=== PATIENT | female | born 1960 | race Caucasian/White ===

== ENCOUNTER 2024-06-07 12:05 | Emergency (ER) | payer MEDICARE, OTHER, SELFPAY ==
[2024-06-07 12:07] VITALS: BP 176/92; PULSE 81; RESP 17; TEMP 36.7; O2SAT 99; BMI 30.7
[2024-06-07 15:03] VITALS: BP 158/113; PULSE 82; O2SAT 100
--- NOTE | 2024-06-07 15:09 | CTR_ITS ---
PROCEDURE INFORMATION: Exam: CT Lumbar Spine Without Contrast Exam date and time: 06/07/2024 3:24 PM Age: 64 years old Clinical indication: Low back pain; Additional info: Persistent back pain TECHNIQUE: Imaging protocol: Computed tomography of the lumbar spine without contrast. Radiation optimization: All CT scans at this facility use at least one of these dose optimization techniques: automated exposure control; mA and/or kV adjustment per patient size (includes targeted exams where dose is matched to clinical indication); or iterative reconstruction. COMPARISON: No relevant prior studies available. RADIATION DOSE METRICS: Total DLP (mGy-cm): 856 FINDINGS: Bones/joints: L2 vertebral body superior endplate minimal compression deformity without retropulsion of bony fragments, age indeterminate. L1-L2: No significant disc bulge or herniation. No severe spinal canal stenosis. No significant neural foraminal narrowing. L2-L3: No significant disc bulge or herniation. No severe spinal canal stenosis. No significant neural foraminal narrowing. L3-L4: L3-L4 broad-based disc bulge with mild bilateral foraminal narrowing and mild spinal canal narrowing. L4-L5: L4-L5 broad-based disc bulge and productive degenerative endplate changes mild spinal canal and bilateral foraminal narrowing. L5-S1: No significant disc bulge or herniation. No severe spinal canal stenosis. No significant neural foraminal narrowing. Kidneys and ureters: Right kidney cysts partially visualized. Perinephric edema bilaterally likely reflecting renal insufficiency, please correlate for pyelonephritis. Soft tissues: Unremarkable. CT/CT lumbar spine wo con* [id number] IMPRESSION: 1. Right kidney cysts partially visualized. 2. Perinephric edema bilaterally likely reflecting renal insufficiency, please correlate for pyelonephritis. 3. L2 vertebral body superior endplate minimal compression deformity without retropulsion of bony fragments, age indeterminate. 4. L3-L4 broad-based disc bulge with mild bilateral foraminal narrowing and mild spinal canal narrowing. 5. L4-L5 broad-based disc bulge and productive degenerative endplate changes mild spinal canal and bilateral foraminal narrowing. COMMENTS: Consistent with the [employer]'s Incidental Findings Committee white paper (J Am Aron Radiol 2018): Any incidental renal lesion less than 1 cm or classified as too small to characterize, or any incidental cystic renal lesion characterized as simple-appearing, is likely benign. No follow-up imaging is recommended for these lesions per consensus recommendations based on imaging criteria.
--- NOTE | 2024-06-07 15:09 | W.ED.EXTPRO ---
HPI - Extremity Problem General: Chief complaint: Extremity Problem,Nontraumatic Stated complaint: left side back/leg pain Time Seen by Provider: 06/07/24 15:00 History of Present Illness: 64-year-old female comes in today with complaints of lumbar pain radiating down her left hip to thigh. Patient reports pain for the last 2 months worsening over the last 3 days. Patient had talked to her primary care and they recommended she come to the ER. Patient reports had had her in physical therapy with minimal relief. Patient at this time is taking methocarbamol with minimal relief of pain. Patient appears nontoxic. Patient denies any loss of bowel or bladder control. Related Data Home Medications ?Medication ?Instructions ?Recorded ?Confirmed albuterol sulfate 0.63 mg/3 mL 0.63 mg inhalation QID PRN 05/13/19 06/07/24 solution for nebulization Shortness Of Breath ascorbic acid (vitamin C) 500 mg 500 mg PO DAILY 05/13/19 06/07/24 tablet biotin 2,500 mcg capsule 5 mg PO DAILY 05/13/19 06/07/24 budesonide 3 mg 3 mg PO DAILY 05/13/19 06/07/24 capsule,delayed,extended release calcium 600 mg (as carbonate)-vit 1 tab PO BID 05/13/19 06/07/24 D3 10 mcg (400 unit)-minerals tablet clopidogrel 75 mg tablet (Plavix) 75 mg PO DAILY 05/13/19 06/07/24 lactobacillus combination no.8 1 tab PO DAILY 05/13/19 06/07/24 [Adult Probiotic] melatonin 3 mg capsule 3 mg PO DAILY PRN Sleep 05/13/19 06/07/24 metoprolol tartrate 25 mg tablet 12.5 mg PO BID 05/13/19 06/07/24 multivitamin 1 tab PO DAILY 05/13/19 06/07/24 nitroglycerin 0.4 mg sublingual 0.4 mg sublingual Q5M PRN Chest 05/13/19 06/07/24 tablet (Nitrostat) Pain ondansetron HCl 8 mg tablet 8 mg PO Q8H PRN Nausea 05/13/19 06/07/24 pantoprazole 40 mg tablet,delayed 40 mg PO BID 05/13/19 06/07/24 release simvastatin 40 mg tablet 40 mg PO DAILY 05/13/19 06/07/24 tamsulosin 0.4 mg capsule 0.4 mg PO DAILY 05/13/19 06/07/24 trazodone 100 mg tablet 100 mg PO BEDTIME 05/13/19 06/07/24 zolpidem 12.5 mg tablet,extended 12.5 mg PO QPM 05/13/19 06/07/24 release,multiphase (Ambien CR) budesonide 160 mcg-glycopyr 9 2 inh inhalation BID 06/07/24 06/07/24 mcg-formot 4.8 mcg/actuation HFA inhaler (Breztri Aerosphere) coenzyme Q10 30 mg capsule 30 mg PO DAILY 06/07/24 06/07/24 denosumab 60 mg/mL subcutaneous 60 mg SUBCUT .[id number] 06/07/24 06/07/24 syringe (Prolia) levocetirizine 5 mg tablet 5 mg PO DAILY 06/07/24 06/07/24 omega-3 fatty acids-fish oil 684 1 cap PO DAILY 06/07/24 06/07/24 mg-1,200 mg capsule,delayed release tizanidine 4 mg tablet 40 mg PO Q8H PRN Muscle Spasm 06/07/24 06/07/24 Previous Rx's ?Medication ?Instructions ?Recorded hydrocodone 5 mg-acetaminophen 325 1 tab PO Q6H PRN pain #12 tabs 06/07/24 mg tablet prednisone 20 mg tablet 20 mg PO BID 5 days #10 tabs 06/07/24 Allergies Allergy/AdvReac Type Severity Reaction Status Date / Time aspirin Allergy Unknown unknown Verified 05/13/19 09:59 diphenhydramine (From Allergy Unknown Unknown Verified 05/13/19 10:04 Benadryl) gabapentin Allergy Unknown unknown Verified 05/13/19 09:58 metformin Allergy Unknown unknown Verified 05/13/19 09:59 NSAIDS (Non-Steroidal Allergy Unknown unknown Verified 05/13/19 10:04 Anti-Inflamma pregabalin (From Lyrica) Allergy Unknown vomiting Verified 05/13/19 10:04 sucralfate (From Carafate) Allergy Unknown unknown Verified 05/13/19 10:04 sulfamethoxazole (From Allergy Unknown vomiting Verified 05/13/19 10:04 Bactrim) and nausea trimethoprim (From Bactrim) Allergy Unknown vomiting Verified 05/13/19 10:04 and nausea zonisamide (From Zonegran) Allergy Unknown abdominal Verified 05/13/19 10:04 pain Review of Systems General: Reports: 10 or more systems reviewed and unremarkable except in HPI and below PFSH ED PFSH: Medical History (Updated 06/07/24 @ 16:28 by ROBERT Purcell) Ventricular arrhythmia Substernal precordial chest pain Pt had a total of three cardiac catheterizations in the past and was told to have no significant no blockages. Asthma Sleep apnea Neurogenic bladder Spondylosis Chronic migraine Hypertension Hyperlipidemia Manic bipolar I disorder Surgical History H/O: hysterectomy H/O section History of ankle surgery Family History Other CAD (coronary artery disease) Cancer Diabetes Hyperlipidemia Hypertension Stroke Social History (Updated 05/27/19 @ 15:40 by FREDY Mcpherson) Smoking and tobacco/nicotine status: current every day tobacco/nicotine user Alcohol intake: never Substance/Drug Use: never Adopted: No Caregiver/support person: No Marital status: Current occupational status: disabled Physical Exam Const: COMMON NORMALS: alert HENMT: COMMON NORMALS: normocephalic HEAD & SCALP: normocephalic Neck/C-Spine: COMMON NORMALS: full ROM Resp: COMMON NORMALS: normal respiratory effort and clear to auscultation bilaterally AUSCULTATION: clear to auscultation bilaterally GI: COMMON NORMALS: Soft to palpation and non-tender PALPATION: Yes Soft to palpation Back/Pelvis: LUMBAR SPINE/LOWER BACK: Yes paraspinal muscle tenderness Lumbar paraspinal muscle tenderness: left SACROILIAC JOINTS: Yes SI joint(s) abnormal SI joint details: tender to palpation Extremity: NARRATIVE EXTREMITY EXAM: Left leg positive lift test at 45 degrees. Neuro: SENSORIUM/ORIENTATION: Yes alert Skin: COMMON NORMALS: turgor normal GENERAL SKIN EXAM: turgor normal Course Vital Signs: Vital signs: Vital Signs Temperature 98.0 F 06/07/24 12:07 Pulse Rate 82 06/07/24 15:03 Respiratory Rate 17 06/07/24 12:07 Blood Pressure 158/113 06/07/24 15:03 Pulse Oximetry 100 06/07/24 15:03 Oxygen Delivery Me thod Room Air 06/07/24 15:03 MDM - Extremity (Nontraumatic) Medical Decision Making 64-year-old female comes in today with increased back pain radiating down her left leg. Patient appears nontoxic. Patient appears in moderate to severe pain. Patient has palpable muscle tenderness of the left lower lumbar area. Patient has tenderness in the left sacroiliac joint. Patient has a leg lift test at 45 degrees positive. Abdomen soft nontender. Skin is warm and dry. Differential diagnosis includes but not limited to intervertebral disc disease, facet arthritis, lumbar radiculopathy. Patient was given 10 mg dexamethasone for inflammation. Patient was offered a dose of hydromorphone but refused it stating it did not help her pain and reported that morphine also did not help her pain. Patient was then given 5 mg of Haldol to help with her her pain. Lab Data Radiology Impressions Lumbar Spine CT 06/07/24 15:09 IMPRESSION: 1. Right kidney cysts partially visualized. 2. Perinephric edema bilaterally likely reflecting renal insufficiency, please correlate for pyelonephritis. 3. L2 vertebral body superior endplate minimal compression deformity without retropulsion of bony fragments, age indeterminate. 4. L3-L4 broad-based disc bulge with mild bilateral foraminal narrowing and mild spinal canal narrowing. 5. L4-L5 broad-based disc bulge and productive degenerative endplate changes mild spinal canal and bilateral foraminal narrowing. COMMENTS: Consistent with the [employer]'s Incidental Findings Committee white paper (J Am Aron Radiol 2018): Any incidental renal lesion less than 1 cm or classified as too small to characterize, or any incidental cystic renal lesion characterized as simple-appearing, is likely benign. No follow-up imaging is recommended for these lesions per consensus recommendations based on imaging criteria. Laboratory Results Urine Color Yellow (Yellow) 06/07/24 16:00 Urine Appearance Clear (CLEAR) 06/07/24 16:00 Urine pH 6.0 (5-7) 06/07/24 16:00 Ur Specific [place] 1.007 (1.005-1.030) 06/07/24 16:00 Urine Protein Negative (Negative) 06/07/24 16:00 Urine Glucose (UA) Negative (Normal) 06/07/24 16:00 Urine Ketones Negative (Negative) 06/07/24 16:00 Urine Blood Negative (Negative) 06/07/24 16:00 Urine Nitrate Negative (Negative) 06/07/24 16:00 Urine Bilirubin Negative (Negative) 06/07/24 16:00 Urine Urobilinogen 0.2 mg/dL (Negative) 06/07/24 16:00 Ur Leukocyte Esterase Trace (Negative) A 06/07/24 16:00 Urine RBC 0-2 /hpf (0-2) 06/07/24 16:00 Urine WBC 0-5 /hpf (0-5) 06/07/24 16:00 Ur Squamous Epith Cells 0-5 /hpf (0-5) 06/07/24 16:00 Amorphous Sediment Not Reportable 06/07/24 16:00 Urine Bacteria None seen /hpf (NONE) 06/07/24 16:00 Hyaline Casts 0-4 /lpf H 06/07/24 16:00 All radiology interpretation(s) finalized by discharge Discharge Plan Discharge Patient Disposition: Home Clinical Impression: Left lumbar radiculopathy Condition: Stable Prescriptions: New prednisone 20 mg tablet 20 mg PO BID 5 Days Qty: 10 0RF hydrocodone-acetaminophen 5-325 mg tablet 1 tab PO Q6H PRN (Reason: pain) Qty: 12 0RF Rx Instructions: dx: lumbar radiculopathy No Action albuterol sulfate 0.63 mg/3 mL solution for nebulization 0.63 mg INHALATION QID PRN (Reason: Shortness Of Breath) zolpidem [Ambien CR] 12.5 mg tablet,ext release multiphase 12.5 mg PO QPM ascorbic acid (vitamin C) 500 mg tablet 500 mg PO DAILY biotin 2,500 mcg capsule 5 mg PO DAILY calcium carbonate-vit D3-min 600 mg calcium- 400 unit tablet 1 tab PO BID clopidogrel [Plavix] 75 mg tablet 75 mg PO DAILY lactobacillus combination no.8 1 tab PO DAILY melatonin 3 mg capsule 3 mg PO DAILY PRN (Reason: Sleep) multivitamin Tablet 1 tab PO DAILY nitroglycerin [Nitrostat] 0.4 mg tablet, sublingual 0.4 mg SUBLINGUAL Q5M PRN (Reason: Chest Pain) pantoprazole 40 mg tablet,delayed release (DR/EC) 40 mg PO BID ondansetron HCl 8 mg tablet 8 mg PO Q8H PRN (Reason: Nausea) metoprolol tartrate 25 mg tablet 12.5 mg PO BID trazodone 100 mg tablet 100 mg PO BEDTIME budesonide 3 mg capsule,delayed,extend.release 3 mg PO DAILY simvastatin 40 mg tablet 40 mg PO DAILY tamsulosin 0.4 mg capsule 0.4 mg PO DAILY tizanidine 4 mg tablet 40 mg PO Q8H PRN (Reason: Muscle Spasm) coenzyme Q10 [CoQ-10] 30 mg Capsule 30 mg PO DAILY levocetirizine 5 mg Tablet 5 mg PO DAILY [place] 3 Fish Oil 684-1,200 mg Capsule,Delayed Release(Dr/Ec) 1 cap PO DAILY Prolia 60 mg/mL Syringe 60 mg SUBCUT .[id number] Breztri Aerosphere 160-9-4.8 mcg/actuation Hfa Aerosol Inhaler 2 inh INHALATION BID Discharge Orders: Discharge ED (Routine); Ordered 06/07/24 Ordered By: Chalo Nesbitt Other Ambulatory Orders: DME: Miscellaneous (Order) Location: None Selected Ordered By: Chalo Nesbitt Discharge Diet: Usual diet Discharge Activity: Increase activity as tolerated and Use walker/crutches as instructed Patient Instructions: Opioid Safety, Pain Management Activity Restrictions/Additional Instructions: Try to maintain activity as much as possible. Follow-up with primary care. Case management will contact you regarding follow-up with orthopedic spine. Print Language: Telugu Coding Level of Care Code ED Manager [employer]
[2024-06-07] MEDS: dexamethasone 10 mg/mL INJ IM (15:19)
[2024-06-07] MEDS: haloperidol inj 5 mg/mL INJ 1 mL IM (15:58)
[2024-06-07 16:14] LABS: Bilirubin Urine Negative (Negative); Blood Urine Negative (Negative); Glucose Urine UA Negative (Normal); Ketones Urine Negative (Negative); Leukocyte Esterase Urine Trace (Negative); Nitrate Urine Negative (Negative); Protein Urine Negative (Negative); Specific Gravity, Urine 1.007 (1.005-1.030); Urine Appearance Clear (CLEAR); Urine Color Yellow (Yellow); Urobilinogen Urine 0.2 mg/dL (Negative)
[2024-06-07 16:19] LABS: Add Urine Microscopic? YES; Bacteria Urine None Seen /hpf; Hyaline Casts Urine 0-4 /lpf; RBC Urine 0-2 /hpf (0-2); Squamous Epithelial Cell Urine 0-5 /hpf (0-5); WBC Urine 0-5 /hpf (0-5)
[2024-06-07 16:44] VITALS: BP 117/96; PULSE 69; O2SAT 98
== END 2024-06-07 16:45 | disposition home or self-care (01) ==
PROVIDERS: Family Medicine; Emergency Provider Nurse Practitioner Family
DX: M54.16 Radiculopathy, lumbar region (principal); Z79.02 Long term (current) use of antithrombotics/antiplatelets; Z72.0 Tobacco use; E78.5 Hyperlipidemia, unspecified; I10 Essential (primary) hypertension
CPT/HCPCS: 72131; 81001; 96372; 99284; J1100; J1630

== ENCOUNTER → 2024-07-03 08:45 | Outpatient (BNVA) | payer OTHER, MEDICAID, SELFPAY | PROVIDERS: PCP Nurse Practitioner; Visit Provider Orthopaedic Surgery | DX: M54.9 Dorsalgia, unspecified (principal) | CPT/HCPCS: 72110 ==

== ENCOUNTER 2024-07-11 09:08 | Outpatient (CLI) | payer OTHER, MEDICAID, SELFPAY ==
--- NOTE | 2024-07-11 09:30 | MR_ITS ---
WS: [id number] MRI LUMBAR SPINE NONCONTRAST HISTORY: Chronic low back pain. LEFT radiculopathy. COMPARISON: 06/22/2014 TECHNIQUE: Sagittal and axial multisequence imaging is submitted. Mild cervical and thoracic spondylosis. No cord compression. Mild long curvature RIGHT scoliosis lumbar spine. Very slight concave deformity involving the superior LEFT lateral endplate of L2 is stable. No acute marrow edema or fracture. Disc spaces are slightly desiccated. Conus terminates normally at L1. L1-L2: Mild facet and ligamentum flavum hypertrophy. L2-L3: Mild annular disc bulging with mild ligamentum flavum and facet arthritis. No stenosis. L3-L4: Mild annular disc bulging with a tiny central disc protrusion with annular fissure. Ligamentum flavum and facet arthritis. LEFT foraminal disc protrusion contacts the exiting LEFT L3 nerve root. This has progressed since the prior study. Minimal disc bulging RIGHT foramen with no contact on the exiting nerve root. There is mild disc contact also bilaterally on the traversing L4 nerve roots in the subarticular recesses. L4-L5: Mild annular disc bulging with ligamentum flavum and facet arthritis. Mild disc encroachment upon the subarticular recesses and traversing L5 nerve roots. RIGHT foraminal disc protrusion with annular fissure with mild contact on the RIGHT exiting L4 nerve root. Mild RIGHT foraminal stenosis. Mild central and subarticular recess stenosis. L5-S1: Moderate facet and ligamentum flavum hypertrophy. No stenosis. Bilateral renal cysts. MR/MR lumbar spine wo con* [id number] IMPRESSION: 1. L3-4: New LEFT foraminal disc protrusion contacting the LEFT L3 exiting ner ve root. Mild LEFT foraminal stenosis. 2. L3-4: Tiny central disc protrusion with annular fissure. There is mild disc contact on the traversing L4 nerve roots in the subarticular recesses. 3. L4-5: Mild central and subarticular recess stenosis. 4. L4-5: RIGHT foraminal disc protrusion with annular fissure and contact on t he RIGHT exiting L4 nerve root. Mild RIGHT foraminal stenosis.
== END 2024-07-11 09:09 | disposition home or self-care (01) ==
PROVIDERS: PCP Nurse Practitioner; Visit Provider Orthopaedic Surgery
DX: M51.26 Other intervertebral disc displacement, lumbar region (principal); M48.061 Spinal stenosis, lumbar region without neurogenic claudication; M47.892 Other spondylosis, cervical region; M47.894 Other spondylosis, thoracic region; M41.86 Other forms of scoliosis, lumbar region; M47.896 Other spondylosis, lumbar region; M24.28 Disorder of ligament, vertebrae; M51.369 Other intervertebral disc degeneration, lumbar region without mention of lumbar back pain or lower extremity pain; M47.897 Other spondylosis, lumbosacral region; N28.1 Cyst of kidney, acquired
CPT/HCPCS: 72148

== ENCOUNTER → 2024-07-15 13:03 | Outpatient (BNVA) | payer OTHER, MEDICAID, SELFPAY | PROVIDERS: PCP Nurse Practitioner; Visit Provider Orthopaedic Surgery | DX: Z01.818 Encounter for other preprocedural examination (principal); Z09 Encounter for follow-up examination after completed treatment for conditions other than malignant neoplasm | CPT/HCPCS: 80053; 81001; 85025; 99214 ==

== ENCOUNTER → 2024-08-05 08:38 | Outpatient (BNVA) | payer OTHER, MEDICAID, SELFPAY | PROVIDERS: PCP Nurse Practitioner; Visit Provider Family Medicine | DX: Z01.818 Encounter for other preprocedural examination (principal) | CPT/HCPCS: 85007; 85027; 93005 ==

== ENCOUNTER 2024-08-15 05:47 | Day surgery (SDC) | payer OTHER, MEDICAID, SELFPAY ==
[2024-08-15] VITALS (17 sets, daily range): BP systolic 88–124; BP diastolic 44–82; PULSE 65–84; RESP 12–25; TEMP 36.1–36.2; O2SAT 91–98; BMI 30.2
--- NOTE | 2024-08-15 06:13 | ANES.PREANE2 ---
Pre-Anesthetic Assessment Height/Weight: Height 5 ft 6 in Temp Pulse Resp BP Pulse Ox O2 Del Method 97.1 F L 84 18 109/82 97 Room Air 08/15/24 06:10 08/15/24 06:10 08/15/24 06:10 08/15/24 06:10 08/15/24 06:10 08/15/24 06:10 Preop Diagnosis: Lumbar stenosis with neurogenic claudication Operation Date: 08/15/24 07:00 Proposed Procedures p Lumbar Spine Decompression L 3-4, 4-5(Not Applicable) - Willy Farmer, DO Was Beta Pascale taken within 24 hours: N/A Was Clonidine taken within 24 hours: N/A Social Tobacco and No alcohol Exam alert, oriented x 3 and regular rate & rhythm Decreased breath sounds bilaterally Airway Submandibular: within normal limits Cervical ROM: Other (Bulging cervical disc, numbness in bilateral upper extremities) Mallampati: Class III Comments: Comments: Edentulous Anesthetic Plan ASA status: 3 Anesthesia: General Other: No prior issues with anesthesia NPO since yesterday evening History of COPD, controlled with inhalers. Patient still smoking Hypertension on olmesartan GERD, on Protonix Patient takes Prolia for osteoporosis Labs reviewed 08/05/2024 and acceptable for procedure EKG showing sinus rhythm with mild T wave abnormality. Patient denies any chest pain Patient admits to numbness in bilateral upper extremities as well as loss of control of the lower extremities at times. Patient has fallen multiple times recently Plan for GETA with video laryngoscope due to poor neck extension. Medications/Allergies Home Medications ?Medication ?Instructions ?Recorded ?Confirmed ?Last Taken ?Type albuterol sulfate 0.63 mg/3 mL 0.63 mg inhalation QID PRN 05/13/19 08/14/24 Unknown History solution for nebulization Shortness Of Breath ascorbic acid (vitamin C) 500 mg 500 mg PO DAILY 05/13/19 08/14/24 08/14/24 History tablet biotin 2,500 mcg capsule 5 mg PO DAILY 05/13/19 08/14/24 08/14/24 History budesonide 3 mg 3 mg PO DAILY 05/13/19 08/14/24 06/07/24 History capsule,delayed,extended release lactobacillus combination no.8 1 tab PO DAILY 05/13/19 08/14/24 06/07/24 History [Adult Probiotic] melatonin 3 mg capsule 3 mg PO DAILY PRN Sleep 05/13/19 08/14/24 08/13/24 History multivitamin 1 tab PO DAILY 05/13/19 08/14/24 06/07/24 History nitroglycerin 0.4 mg sublingual 0.4 mg sublingual Q5M PRN Chest 05/13/19 08/14/24 Unknown History tablet (Nitrostat) Pain ondansetron HCl 8 mg tablet 8 mg PO Q8H PRN Nausea 05/13/19 08/14/24 Unknown History pantoprazole 40 mg tablet,delayed 40 mg PO BID 05/13/19 08/14/24 08/14/24 History release trazodone 100 mg tablet 100 mg PO BEDTIME 05/13/19 08/14/24 08/13/24 History budesonide 160 mcg-glycopyr 9 2 inh inhalation BID 06/07/24 08/14/24 08/14/24 History mcg-formot 4.8 mcg/actuation HFA inhaler (PrefundiazgoCatchi MoosCoolphere) coenzyme Q10 30 mg capsule 30 mg PO DAILY 06/07/24 08/14/24 06/07/24 History denosumab 60 mg/mL subcutaneous 60 mg SUBCUT .[id number] 06/07/24 08/14/24 07/17/24 History syringe (Prolia) levocetirizine 5 mg tablet 5 mg PO DAILY 06/07/24 08/14/24 08/14/24 History omega-3 fatty acids-fish oil 684 1 cap PO DAILY 06/07/24 08/14/24 08/13/24 History mg-1,200 mg capsule,delayed release ezetimibe 10 mg tablet 10 mg PO DAILY 08/05/24 08/14/24 08/14/24 History olmesartan 5 mg tablet 5 mg PO DAILY 08/05/24 08/14/24 08/13/24 History Allergies Allergy/AdvReac Type Severity Reaction Status Date / Time aspirin Allergy Unknown ADR-Nausea Verified 08/14/24 12:00 diphenhydramine (From Allergy Unknown Unknown Verified 08/14/24 12:00 Benadryl) gabapentin Allergy Unknown ADR-Vomitin Verified 08/14/24 12:00 g metformin Allergy Unknown ADR-Vomitin Verified 08/14/24 12:00 g NSAIDS (Non-Steroidal Allergy Unknown unknown Verified 08/05/24 09:22 Anti-Inflamma pregabalin (From Lyrica) Allergy Unknown vomiting Verified 08/05/24 09:22 sucralfate (From Carafate) Allergy Unknown ADR-Vomitin Verified 08/14/24 12:00 g sulfamethoxazole (From Allergy Unknown vomiting Verified 08/05/24 09:22 Bactrim) and nausea trimethoprim (From Bactrim) Allergy Unknown vomiting Verified 08/05/24 09:22 and nausea zonisamide (From Zonegran) Allergy Unknown abdominal Verified 08/05/24 09:22 pain [facility] Anesthesia Medical History Ventricular arrhythmia Substernal precordial chest pain Pt had a total of three cardiac catheterizations in the past and was told to have no significant no blockages. Asthma Sleep apnea Neurogenic bladder Spondylosis Chronic migraine Hypertension Hyperlipidemia Manic bipolar I disorder Surgical History H/O: hysterectomy H/O section History of ankle surgery Family History Other CAD (coronary artery disease) Cancer Diabetes Hyperlipidemia Hypertension Stroke Social History Smoking and tobacco/nicotine status: current every day tobacco/nicotine user Alcohol intake: never Substance/Drug Use: never Adopted: No Caregiver/support person: No Marital status: Current occupational status: disabled
[2024-08-15] MEDS: sodium chloride 0.9% 1,000 ML 30 ML IV (06:31)
--- NOTE | 2024-08-15 06:59 | W.PM.OPSFHP ---
Same Day Surgery H&P Indication for Procedure/HPI DATE OF PROCEDURE: August 15, 2024 CHIEF COMPLAINT/INDICATIONFOR SURGICAL PROCEDURE: Back and left leg pain PREOP DIAGNOSIS: Lumbar stenosis with neurogenic claudication PLANNED PROCEDURE: Operation Date: 08/15/24 07:00 Proposed Procedures p Lumbar Spine Decompression L 3-4, 4-5(Not Applicable) - Willy Farmer, DO Medications/Allergies* Home Medications ?Medication ?Instructions ?Recorded ?Confirmed ?Type albuterol sulfate 0.63 mg/3 mL 0.63 mg inhalation QID PRN 05/13/19 08/15/24 History solution for nebulization Shortness Of Breath ascorbic acid (vitamin C) 500 mg 500 mg PO DAILY 05/13/19 08/15/24 History tablet biotin 2,500 mcg capsule 5 mg PO DAILY 05/13/19 08/15/24 History budesonide 3 mg 3 mg PO DAILY 05/13/19 08/15/24 History capsule,delayed,extended release lactobacillus combination no.8 1 tab PO DAILY 05/13/19 08/15/24 History [Adult Probiotic] melatonin 3 mg capsule 3 mg PO DAILY PRN Sleep 05/13/19 08/15/24 History multivitamin 1 tab PO DAILY 05/13/19 08/15/24 History nitroglycerin 0.4 mg sublingual 0.4 mg sublingual Q5M PRN Chest 05/13/19 08/15/24 History tablet (Nitrostat) Pain ondansetron HCl 8 mg tablet 8 mg PO Q8H PRN Nausea 05/13/19 08/15/24 History pantoprazole 40 mg tablet,delayed 40 mg PO BID 05/13/19 08/15/24 History release trazodone 100 mg tablet 100 mg PO BEDTIME 05/13/19 08/15/24 History budesonide 160 mcg-glycopyr 9 2 inh inhalation BID 06/07/24 08/15/24 History mcg-formot 4.8 mcg/actuation HFA inhaler (Breztri Aerosphere) coenzyme Q10 30 mg capsule 30 mg PO DAILY 06/07/24 08/15/24 History denosumab 60 mg/mL subcutaneous 60 mg SUBCUT .[id number] 06/07/24 08/15/24 History syringe (Prolia) levocetirizine 5 mg tablet 5 mg PO DAILY 06/07/24 08/15/24 History omega-3 fatty acids-fish oil 684 1 cap PO DAILY 06/07/24 08/15/24 History mg-1,200 mg capsule,delayed release ezetimibe 10 mg tablet 10 mg PO DAILY 08/05/24 08/15/24 History olmesartan 5 mg tablet 5 mg PO DAILY 08/05/24 08/15/24 History amitriptyline 50 mg tablet 50 mg PO BEDTIME 08/15/24 08/15/24 History Allergies/Adverse Reactions Allergy/AdvReac Type Severity Reaction Status Date / Time aspirin Allergy Unknown ADR-Nausea Verified 08/14/24 12:00 diphenhydramine (From Allergy Unknown Unknown Verified 08/14/24 12:00 Benadryl) gabapentin Allergy Unknown ADR-Vomitin Verified 08/14/24 12:00 g metformin Allergy Unknown ADR-Vomitin Verified 08/14/24 12:00 g NSAIDS (Non-Steroidal Allergy Unknown unknown Verified 08/05/24 09:22 Anti-Inflamma pregabalin (From Lyrica) Allergy Unknown vomiting Verified 08/05/24 09:22 sucralfate (From Carafate) Allergy Unknown ADR-Vomitin Verified 08/14/24 12:00 g sulfamethoxazole (From Allergy Unknown vomiting Verified 08/05/24 09:22 Bactrim) and nausea trimethoprim (From Bactrim) Allergy Unknown vomiting Verified 08/05/24 09:22 and nausea zonisamide (From Zonegran) Allergy Unknown abdominal Verified 08/05/24 09:22 pain Current Medications: Generic Name Dose Route Start Last Admin Trade Name Freq PRN Reason Stop Dose Admin Sodium Chloride 1,000 mls @ 30 mls/hr 08/15/24 06:15 08/15/24 06:31 Sodium Chloride 0.9% IV 08/16/24 06:14 30 mls/hr .Q24H SANDRITA Administration Pertinent History/Comorbid Conditions* Medical History (Updated 06/15/24 @ 00:00 by ABNER Petersen) Ventricular arrhythmia Substernal precordial chest pain Pt had a total of three cardiac catheterizations in the past and was told to have no significant no blockages. Asthma Sleep apnea Neurogenic bladder Spondylosis Chronic migraine Hypertension Hyperlipidemia Manic bipolar I disorder Surgical History (Updated 05/13/19 @ 10:34 by Rodríguez Arauz MD) H/O: hysterectomy H/O section History of ankle surgery Family History (Updated 05/13/19 @ 10:14 by Alesha Vega RN) Diabetes CAD (coronary artery disease) Hyperlipidemia Cancer Hypertension Stroke Social History Smoking and tobacco/nicotine status: current every day tobacco/nicotine user Alcohol intake: never Substance/Drug Use: never Adopted: No Caregiver/support person: No Marital status: Current occupational status: disabled Pertinent Exam Findings alert, oriented x 3 and procedure specific exam findings Recommendations Risks and benefits of procedure reviewed Surgery/Procedure today Coding Level of Care Code Acute Code for Chg Fwd
[2024-08-15] MEDS: ceFAZolin 2,000 mg SDV 2000 MG IVP (07:17)
[2024-08-15] MEDS: lidocaine-epi 1% 20 mL INJ 10 ML INJECTION (07:43)
--- NOTE | 2024-08-15 08:23 | XR_ITS ---
WS: [id number] Exam: XR lumbar spine 2-3V* [id number] Date/Time of Exam: 08/15/2024 8:23 AM Reason For Exam: OR PICS Anterior posterior images of the lower lumbar spine are submitted. Images were obtained for preop localization purposes.
--- NOTE | 2024-08-15 08:30 | P.OP_ITS ---
Operative Report Date of procedure: August 15, 2024 Pre-op diagnosis: Lumbar stenosis with neurogenic claudication Post-op diagnosis: same Procedure done: 1. L3/4 laminectomy with partial facetectomy 2. L4/5 laminectomy and partial facetectomy Surgeon: Willy Farmer DO Estimated blood loss (mL): 10 Procedure: 1. L3/4 laminectomy with partial facetectomy 2. L4/5 laminectomy and partial facetectomy Patient is brought to the operative suite. After undergoing anesthesia they are placed in the prone position. All areas of impingement are well padded. Patient is then prepped and draped in the normal sterile fashion. A skin incision is made over the L3/4 level. This is confirmed under c-arm guidance. A series of dilators are passed and the tubular retractor is docked on the L3 lamina. A bovie is used to clear the soft tissue off the lamina and the L 3/4 facet joint. A high speed jostin is then used to perform the laminectomy and take down the medial aspect of the L 3/4 facet joint. A kerrison rongeure was then used to take down the remaining lamina and smooth the edge of the laminectomy up to the point where the ligamentum flavum attaches. Attention was then brought to the medial aspect of the facet joint. The remaining medial aspect of the superior and inferior aspect of the facet joint were taken down with the kerrison from the pedicle of L3 to L 4. The facet joint had significant hypertrophy. Attention was then brought to the Ligamentum Flavum. The ligament was taken down from the lamina of L3 to L4 and out medially to the remaining facet joint. The ligament was thick. The dura was then exposed. The dura was in good repair. The L3 nerve was then traced with a curette out the L3/4 foramen and found to be adequately decompressed. The L4 nerve was traced with a curette around the L4 pedicle. The lateral recess was opened with a kerrison helping to further decompress the L4 nerve. Wound is then irrigated copiously with saline and surgiflo is used to stop any bleeding. The tubular retractor is removed and the A skin incision is made over the L4/5 level. This is confirmed under c-arm guidance. A series of dilators are passed and the tubular retractor is docked on the L4 lamina. A bovie is used to clear the soft tissue off the lamina and the L 4/5 facet joint. A high speed jostin is then used to perform the laminectomy and take down the medial aspect of the L 4/5 facet joint. A kerrison rongeure was then used to take down the remaining lamina and smooth the edge of the laminectomy up to the point where the ligamentum flavum attaches. Attention was then brought to the medial aspect of the facet joint. The remaining medial aspect of the superior and inferior aspect of the facet joint were taken down with the kerrison from the pedicle of L4 to L 5. The facet joint had significant hypertrophy. Attention was then brought to the Ligamentum Flavum. The ligament was taken down from the lamina of L4 to L5 and out medially to the remaining facet joint. The ligament was thick. The dura was then exposed. The dura was in good rep air. The L4 nerve was then traced with a curette out the L4/5 foramen and found to be adequately decompressed. The L5 nerve was traced with a curette around the L5 pedicle. The lateral recess was opened with a kerrison helping to further decompress the L5 nerve. Wound is then irrigated copiously with saline and surgiflo is used to stop any bleeding. The tubular retractor is removed and the wound is closed with vicryl and monocryl suture. Glue is then used to protect the wound. A sterile dressing is then placed. Patient was then placed in the supine position and transferred to the PACU in stable condition.
[2024-08-15] MEDS: fentaNYL 50 mcg/mL INJ 2mL IVP ×2 (08:42→08:59)
[2024-08-15] MEDS: ondansetron 2 mg/ML SDV 2 mL 4 MG IVP (08:53)
[2024-08-15] MEDS: HYDROcodone-acetaminophen 5-325 mg Tablet 2 TAB PO (09:32)
--- NOTE | 2024-08-15 10:20 | ANE.PACU2 ---
Inpatient post-anesthesia follow up: Airway intact: Yes Vital signs: Temperature 97.0 F Pulse Rate 81 Respiratory Rate 18 Blood Pressure 99/70 Pulse Oximetry 94 Oxygen Delivery Me thod Room Air Oxygen Flow Rate 8 Fraction of Inspir ed Oxygen Hydration adequate: Yes Nausea and vomiting: No Pain level: 1 Mental status: Baseline
== END 2024-08-15 10:20 | disposition home or self-care (01) ==
PROVIDERS: PCP Nurse Practitioner; Visit Provider Orthopaedic Surgery
PROC: (CPT 63005; principal; 2024-08-15 07:00)
DX: M48.062 Spinal stenosis, lumbar region with neurogenic claudication (principal); K21.9 Gastro-esophageal reflux disease without esophagitis; I10 Essential (primary) hypertension; M81.0 Age-related osteoporosis without current pathological fracture; J44.9 Chronic obstructive pulmonary disease, unspecified; F17.200 Nicotine dependence, unspecified, uncomplicated; R29.6 Repeated falls; E78.5 Hyperlipidemia, unspecified; Z79.899 Other long term (current) drug therapy; Z79.83 Long term (current) use of bisphosphonates; Z88.8 Allergy status to other drugs, medicaments and biological substances; Z88.2 Allergy status to sulfonamides
CPT/HCPCS: 63047; 63048; 72100; 76000; J0690; J1100; J2250; J2405; J2704; J3010; J3490; J7030; J9999

== ENCOUNTER → 2024-08-28 08:41 | Outpatient (BNVA) | payer OTHER, MEDICAID, SELFPAY | PROVIDERS: PCP Nurse Practitioner; Visit Provider Orthopaedic Surgery | DX: Z98.890 Other specified postprocedural states (principal) | CPT/HCPCS: 99024 ==

== ENCOUNTER → 2024-09-25 08:21 | Outpatient (BNVA) | payer OTHER, MEDICAID, SELFPAY | PROVIDERS: PCP Nurse Practitioner; Visit Provider Orthopaedic Surgery | DX: Z98.890 Other specified postprocedural states (principal) | CPT/HCPCS: 99024 ==

== ENCOUNTER → 2024-10-28 13:20 | Outpatient (BNVA) | payer OTHER, MEDICAID, SELFPAY | PROVIDERS: PCP Nurse Practitioner; Visit Provider Physician Assistant | DX: S42.302A Unspecified fracture of shaft of humerus, left arm, initial encounter for closed fracture (principal); W18.39XA Other fall on same level, initial encounter; Y93.K1 Activity, walking an animal | CPT/HCPCS: 24500; 73060; 99203 ==

== ENCOUNTER → 2024-11-06 07:33 | Outpatient (BNVA) | payer OTHER, MEDICAID, SELFPAY | PROVIDERS: PCP Nurse Practitioner; Visit Provider Orthopaedic Surgery | DX: Z98.890 Other specified postprocedural states (principal) | CPT/HCPCS: 99024 ==

== ENCOUNTER → 2024-11-12 14:03 | Outpatient (BNVA) | payer OTHER, MEDICAID, SELFPAY | PROVIDERS: PCP Nurse Practitioner; Visit Provider Physician Assistant | DX: S42.302A Unspecified fracture of shaft of humerus, left arm, initial encounter for closed fracture (principal); X58.XXXA Exposure to other specified factors, initial encounter | CPT/HCPCS: 73060; 99213 ==

== ENCOUNTER → 2024-12-10 08:10 | Outpatient (BNVA) | payer OTHER, MEDICAID, SELFPAY | PROVIDERS: PCP Nurse Practitioner; Visit Provider Physician Assistant | DX: S42.302D Unspecified fracture of shaft of humerus, left arm, subsequent encounter for fracture with routine healing (principal); X58.XXXD Exposure to other specified factors, subsequent encounter | CPT/HCPCS: 73030 ==

== ENCOUNTER 2024-12-10 10:24 | Outpatient (CLI) | payer OTHER, MEDICAID, SELFPAY | END 2024-12-10 10:25 | disposition home or self-care (01) | LOC: SPT 10:25 | PROVIDERS: PCP Nurse Practitioner; Visit Provider Physician Assistant | DX: Z46.89 Encounter for fitting and adjustment of other specified devices (principal); S42.302D Unspecified fracture of shaft of humerus, left arm, subsequent encounter for fracture with routine healing; X58.XXXD Exposure to other specified factors, subsequent encounter | CPT/HCPCS: 99213; A4565 ==

== ENCOUNTER → 2025-01-05 13:09 | Outpatient (BNVA) | payer OTHER, MEDICAID, SELFPAY | PROVIDERS: PCP Nurse Practitioner; Visit Provider Nurse Practitioner Family | DX: D69.2 Other nonthrombocytopenic purpura (principal); L57.8 Other skin changes due to chronic exposure to nonionizing radiation; L81.4 Other melanin hyperpigmentation; L57.0 Actinic keratosis | CPT/HCPCS: 17000; 99203 ==

== ENCOUNTER → 2025-01-07 08:49 | Outpatient (BNVA) | payer OTHER, MEDICAID, SELFPAY | PROVIDERS: PCP Nurse Practitioner; Visit Provider Physician Assistant | DX: S42.302D Unspecified fracture of shaft of humerus, left arm, subsequent encounter for fracture with routine healing (principal); W18.39XD Other fall on same level, subsequent encounter | CPT/HCPCS: 73030; 99213 ==

== ENCOUNTER → 2025-01-28 15:09 | Outpatient (BNVA) | payer OTHER, MEDICAID, SELFPAY | PROVIDERS: PCP Nurse Practitioner; Referring Provider Nurse Practitioner; Visit Provider Internal Medicine Cardiovascular Disease | DX: I12.9 Hypertensive chronic kidney disease with stage 1 through stage 4 chronic kidney disease, or unspecified chronic kidney disease (principal); J44.9 Chronic obstructive pulmonary disease, unspecified; R94.31 Abnormal electrocardiogram [ECG] [EKG]; F17.200 Nicotine dependence, unspecified, uncomplicated | CPT/HCPCS: 99204 ==

== ENCOUNTER 2025-02-03 08:23 | Outpatient (CLI) | payer OTHER, MEDICAID, SELFPAY ==
--- NOTE | 2025-02-03 08:32 | MM_ITS ---
WS: [id number] DIAGNOSTIC BILATERAL DIGITAL BREAST TOMOSYNTHESIS MAMMOGRAPHY WITH CAD RIGHT breast ultrasound, limited HISTORY: Palpable mass RIGHT breast. COMPARISON: 12/12/2016 TECHNIQUE: Bilateral craniocaudad, mediolateral oblique, and mediolateral views are submitted with tomosynthesis and SM. Spot compression RIGHT CC and MLO. Computer aided detection utilized. Breast composition: There are scattered areas of fibroglandular density. Triangular marker is placed in the upper posterior RIGHT breast near 12:00. No underlying mass identified. No distortion. There are benign scattered calcifications in each breast. RIGHT breast ultrasound, limited. RIGHT breast ultrasound is directed to the area of concern at 12:00. There is no mass or abnormality identified. No skin thickening. MM/MM diag BI tomosynthesis [id number] IMPRESSION: BI-RADS: 2 - Benign. FOLLOW UP: 1 Year Follow-up No ultrasound or mammographic abnormality RIGHT breast.
== END 2025-02-03 08:24 | disposition home or self-care (01) ==
LOC: RAD 08:25
PROVIDERS: PCP Nurse Practitioner
DX: N63.10 Unspecified lump in the right breast, unspecified quadrant (principal); R92.323 Mammographic fibroglandular density, bilateral breasts; R92.1 Mammographic calcification found on diagnostic imaging of breast
CPT/HCPCS: 76642; 77062; G0279

== ENCOUNTER 2025-02-23 07:56 | Outpatient (CLI) | payer OTHER, MEDICAID, SELFPAY ==
--- NOTE | 2025-02-23 08:30 | USCV_ITS ---
Lenora Bethea Age: 64 Gender: F : 1960 Exam Date: 02/23/2025 08:33 Ordering Phys: Ian Shah MD ([email or web address]) Technologist: Exam Location: [facility] [place] Indication: sob BP: 182 / 113 HR: 56 Rhythm: Sinus Technical Quality: Adequate MEASUREMENTS (Male / Female) Normal Values 2D ECHO LVOT Diameter 2.0 cm LV Ejection Fraction MOD 4C 64.2 % LV Ejection Fraction MOD 2C 70.9 % LV Ejection Fraction 2C AL 72.8 % LA Diameter 3.9 cm RA Systolic Volume 4C AL 25.5 ml RA Systolic Volume 4C MOD 24.6 ml IVC Diameter 1.8 cm M-MODE LA Ao Ratio MM 1.5 AV Cusp Separation MM 2.0 cm DOPPLER AV Peak Velocity 130.0 cm/s LVOT Peak Velocity 83.0 cm/s AV Area Cont Eq vti 2.3 cm squared AV Area Cont Eq pk 2.1 cm squared MV Peak Velocity 98.0 cm/s MV Area PHT 4.1 cm squared Mitral E to A Ratio 0.8 TV Peak Velocity 191.0 cm/s TR Peak Velocity 199.0 cm/s TR Peak Gradient 15.8 mmHg TV Peak E Velocity 77.0 cm/s PV Peak Velocity 91.0 cm/s FINDINGS Left Ventricle Normal left ventricular size, systolic function and wall thickness with no regional wall motion abnormality. Left ventricular ejection fraction is70%. Normal left ventricular diastolic function. Right Ventricle Normal right ventricular size and systolic function. Right Atrium Normal right atrial size. Left Atrium Normal left atrial size. IA Septum Normal appearance of the interatrial septum. Mitral Valve Normal mitral valve structure. No mitral valve stenosis or regurgitation. Aortic Valve Normal aortic valve structure. No aortic valve stenosis or regurgitation. Tricuspid Valve Normal tricuspid valve structure. Trace regurgitation. Normal pulmonary pressure. Pulmonic Valve Normal pulmonic valve structure. No pulmonic valve stenosis or regurgitation. Pericardium No pericardial effusion. Aorta Normal diameter of the aortic root and ascending thoracic aorta. IVC Normal IVC diameter. CONCLUSIONS Normal left ventricular size, systolic function and wall thickness with ejection fraction of 70%. Normal left ventricular diastolic function. Normal right ventricular size and systolic function. No significant valvular abnormalities. Ian Shah MD, FACC (Electronically Signed) Final Date: 26 February 2025 14:01 S
== END 2025-02-23 07:57 | disposition home or self-care (01) ==
LOC: RAD 07:58
PROVIDERS: PCP Nurse Practitioner; Visit Provider Internal Medicine Cardiovascular Disease
DX: R06.02 Shortness of breath (principal)
CPT/HCPCS: 93306

== ENCOUNTER → 2025-03-04 07:45 | Outpatient (BNVA) | payer OTHER, MEDICAID, SELFPAY | PROVIDERS: PCP Nurse Practitioner; Visit Provider Nurse Practitioner Family | DX: I25.10 Atherosclerotic heart disease of native coronary artery without angina pectoris (principal); E78.5 Hyperlipidemia, unspecified; I12.9 Hypertensive chronic kidney disease with stage 1 through stage 4 chronic kidney disease, or unspecified chronic kidney disease; N18.9 Chronic kidney disease, unspecified; F17.200 Nicotine dependence, unspecified, uncomplicated | CPT/HCPCS: 99214 ==

== ENCOUNTER 2025-03-17 08:45 | Outpatient (CLI) | payer OTHER, MEDICAID, SELFPAY ==
--- NOTE | 2025-03-17 | ECG_ITS ---
[employer] Test Date: 2025-03-17 Pat Name: Lenora Bethea Department: Room: Gender: Female [employer] Operations Engineer: : 1960 Requested By: Addis Paiz Order Number: [id number] Reading MD: DIEGO ARREOLA Interpretive Statements Lung unchanged pre/post procedure; Intraprocedure shortess of breath; Symptoms resoled by discharge NOTE: Please note that this is the electrocardiogram portion of the Lexiscan/Sestamibi stress test. The perfusion scan will be documented separately. DATA: Baseline heart rate was 61 beats per minute. Baseline blood pressure was 158/87 millimeters of mercury. Target heart rate was 154. Maximum heart rate achieved was 121. which was 78 % of the predicted target heart rate. Maximum blood pressure was 158/89 millimeters of mercury. The reason for ending the test was completion of the protocol. The patient did not experience any symptoms. ELECTROCARDIOGRAM: BASELINE: Sinus rhythm. Right axis. Poor R wave progression in the anterior leads with inverted T wave cannot rule out ischemia, EXERCISE: After Lexiscan injection, no ST-T changes suggestive of ischemic noted. No arrhythmia noted. CONCLUSION: Please note due to baseline abnormality of the EKG specificity and sensitivity of the EKG portion of LexiScan MIBI stress test will be low 1. EKG not suggestive of ischemia 2. Lexiscan injection unremarkable. 3. Perfusion scan will be documented separately. Electronically Signed On 04-02-2025 18:49:14 [employer] PL[employer] OPERATOR by DIEGO ARREOLA [email or web address]
--- NOTE | 2025-03-17 09:05 | NMCV_ITS ---
NM eric perf SPECT r/s* [id number] Lenora Bethea Age: 64 Gender: F : 1960 Exam Date: 03/17/2025 09:50 Ordering Phys: Addis Paiz Technologist: KYLER Moon Exam Location: [facility] Indications: cp STRESS TEST Please see separate stress test report in [facility] for full findings IMAGE PROTOCOL Rest/Stress 1 Lexiscan Day Radiopharmaceutical Dose (mCi) Administration Site Administered by Rest: Tc-99m 10.6 IV KYLER Moon Sestamibi Stress:Tc-99m 32.3 IV KYLER Vargas Sestamibi Rest: 17-Mar-2025 60 Discovery 630 Stress: 17-Mar-2025 30 Discovery 630 0.4mg Lexiscan. Images obtained in supine and prone position. SPECT RESULTS Technical Quality: Good Raw Data Analysis: Normal Image Corrections: No attenuation or motion correction applied Summed Stress Score: 0 Summed Rest Score: 0 Summed Difference Score: 0 PERFUSION FINDINGS SPECT images demonstrate homogeneous tracer distribution throughout the myocardium. FUNCTIONAL RESULTS (calculated via Gated SPECT) Stress Image LV EF (%): 61 Stress EDV (mL):80 TID: 1.1 Stress ESV (mL):31 FUNCTIONAL FINDINGS: There is normal left ventricular systolic function. IMPRESSIONS Myocardial perfusion imaging is not suggestive of significant ischemia. Ariana Valderrama MD (Electronically Signed) Final Date: 17 March 2025 13:21 S
[2025-03-17 09:06] VITALS: BMI 29.2
[2025-03-17 10:34] VITALS: BP 145/83; PULSE 79
== END 2025-03-17 08:46 | disposition home or self-care (01) ==
LOC: CDL 08:48
PROVIDERS: PCP Nurse Practitioner; Visit Provider Nurse Practitioner Family
DX: R07.9 Chest pain, unspecified (principal)
CPT/HCPCS: 36415; 78452; 93017; 96374; A9500; J2785

== ENCOUNTER 2025-03-20 06:58 | Outpatient (CLI) | payer OTHER, MEDICAID, SELFPAY ==
--- NOTE | 2025-03-20 07:08 | CT_ITS ---
WS: [id number] LDCT LUNG CANCER SCREENING TECHNIQUE: Noncontrast CT of the chest with coronal and sagittal reformatted images. CLINICAL INFORMATION: SCREENING COMPARISON: CT chest 2018 DLP: 72.97 mGy.cm DIvol: Mean CTDIvol: 1.40 (mGy) All CT scans at [facility] use at least one of these dose optimization techniques: automated exposure control; mA and/or kV adjustment per patient size (includes targeted exams where dose is matched to clinical indication); or iterative reconstruction. FINDINGS: Moderate chronic emphysematous changes. 3 mm nodule RIGHT upper lobe. Unchanged since 2018. Fibrosis in the lung apices. Calcified granuloma LEFT lower lobe. 5 mm groundglass nodule RIGHT upper lobe along the fissure Normal caliber thoracic aorta. Aortic calcification. Coronary calcification. No mediastinal or hilar lymphadenopathy. No axillary lymphadenopathy. LEFT adrenal hyperplasia. RIGHT adrenal gland is normal. Splenic artery calcification. Small esophageal hiatal hernia. Mild thoracic curve and kyphosis. No axillary lymphadenopathy. CT/CT lung screening [id number] IMPRESSION: LUNG-RADS: 2-Benign Appearance or Behavior FOLLOW UP: 12 Month: Continue annual screening with LDCT
== END 2025-03-20 06:59 | disposition home or self-care (01) ==
LOC: RAD 06:59
PROVIDERS: PCP Nurse Practitioner; Visit Provider Nurse Practitioner
DX: Z12.2 Encounter for screening for malignant neoplasm of respiratory organs (principal); Z87.891 Personal history of nicotine dependence; J43.9 Emphysema, unspecified; R91.1 Solitary pulmonary nodule; I25.10 Atherosclerotic heart disease of native coronary artery without angina pectoris; E27.8 Other specified disorders of adrenal gland; D73.89 Other diseases of spleen; K44.9 Diaphragmatic hernia without obstruction or gangrene; M40.204 Unspecified kyphosis, thoracic region
CPT/HCPCS: 71271